=== PATIENT | female | born 1995 | race Caucasian/White ===

== ENCOUNTER 2021-09-13 06:35 | Inpatient (IN) | payer OTHER ==
[2021-09-13] MEDS: ELECTROLYTE-148 SOLN 1,000 ML IV SCH ×2 (08:15→09:30)
[2021-09-13 08:47] LABS: BASO % 0.3 % (0-2.0); HEMATOCRIT 33.7 % (32.4-45.2); LYMPH % 16.1 % (8-40); MCH 25.8 pg (25.7-33.7); MCHC 32.5 g/dl (32.0-36.0); MEAN CELL VOLUME 79.2 fl (80-96); NEUT % 74.6 % (42.8-82.8); PLATELET COUNT 230 10^3/uL (134-434); RBC 4.25 M/mm3 (3.60-5.2); RDW 16.6 % (11.6-15.6); WHITE BLOOD COUNT 7.7 K/mm3 (4.0-10.0)
[2021-09-13 09:05] LABS: ACTIVATED PTT 27.7 SECONDS (25.2-36.5); PROTHROMBIN TIME (PATIENT) 11.5 SEC (9.7-13.0)
[2021-09-13] MEDS ORDERED: FENTANYL/BUPIVACAINE/NS/PF - PCEA - 50 ML DISP.SYRIN EP ONE ×2 (09:07→09:22)
[2021-09-13 09:11] LABS: BLOOD UREA NITROGEN 5.2 mg/dL (7-18); CALCIUM 8.6 mg/dL (8.5-10.1)
[2021-09-13 09:15] LABS: CREATININE 0.4 mg/dL (0.55-1.3)
[2021-09-13] MEDS ORDERED: LIDOCAINE HCL/PF 2% SDV 5ML VIAL ONE (09:15)
[2021-09-13] MEDS ORDERED: LIDOCAINE HCL/EPINEPHRINE/PF 20 ML VIAL ONE (09:16)
[2021-09-13] MEDS ORDERED: BUPIVACAINE HCL/PF 0.25% (2.5MG/ML) 10 ML VIAL ONE (09:28)
[2021-09-13] MEDS ORDERED: NALOXONE HCL 0.4 MG/ML VIAL IVPUSH PRN (10:06)
[2021-09-13] MEDS ORDERED: FENTANYL/BUPIVACAINE/NS/PF - PCEA - 50 ML DISP.SYRIN EP SCH (10:15)
[2021-09-13] MEDS ORDERED: OXYTOCIN 20 UNITS in 0.9% NS 20 UNIT/1,000 ML INFUS.BAG IV ONE (10:28)
[2021-09-13] MEDS ORDERED: LIDOCAINE HCL 1% PRESERVATIVE FREE - 30ML VIAL ONE (10:59)
[2021-09-13] MEDS ORDERED: BENZOCAINE 20% 57 GM BOTTLE TP PRN (11:35)
[2021-09-13] MEDS ORDERED: METHYLERGONOVINE MALEATE 0.2 MG/1 ML AMP IM PRN (11:35)
[2021-09-13] MEDS ORDERED: BISACODYL 10 MG SUPP.RECT RC PRN (11:35)
[2021-09-13] MEDS ORDERED: oxyCODONE HCL 5 MG TABLET PO PRN (11:35)
[2021-09-13] MEDS ORDERED: BENZOCAINE 28 GM HEMORRHOIDAL OINTMENT TP PRN (11:35)
[2021-09-13] MEDS ORDERED: WITCH HAZEL 50% (TUCKS) 40 PAD/JAR PAD TP PRN (11:35)
[2021-09-13 11:42] LABS: CORD HCO3 23.5 mmHg (20-29); CORD PCO2 62.8 mmHg (30-78); CORD pH 7.191 (7.14-7.44)
[2021-09-13 11:44] LABS: CORD BASE EXCESS -4.3 mmol/L (0-2); CORD HCO3 22.5 mmHg (20-29); CORD PCO2 48.4 mmHg (30-78); CORD pH 7.286 (7.14-7.44)
[2021-09-13] MEDS ORDERED: OXYTOCIN 20 UNITS in 0.9% NS 20 UNIT/1,000 ML INFUS.BAG IV SCH (11:45)
[2021-09-13 12:52] VITALS: BMI 31.1
[2021-09-13] MEDS: ACETAMINOPHEN 325 MG TABLET (FP) PO PRN (15:59)
[2021-09-13] MEDS: IBUPROFEN 600 MG TABLET (FP) PO PRN ×2 (16:03→21:32)
[2021-09-14] MEDS: IBUPROFEN 600 MG TABLET (FP) PO PRN ×2 (06:38→21:29)
[2021-09-14 08:51] LABS: BASO % 0.5 % (0-2.0); EOS % 0.6 % (0-4.5); HEMATOCRIT 33.4 % (32.4-45.2); HEMOGLOBIN 10.5 GM/dL (10.7-15.3); LYMPH % 19.7 % (8-40); MCH 25.4 pg (25.7-33.7); MCHC 31.4 g/dl (32.0-36.0); MEAN PLT VOLUME 9.7 fl (7.5-11.1); MONO % 7.7 % (3.8-10.2); NEUT % 71.5 % (42.8-82.8); PLATELET COUNT 237 10^3/uL (134-434); RBC 4.12 M/mm3 (3.60-5.2); RDW 16.8 % (11.6-15.6); WHITE BLOOD COUNT 7.6 K/mm3 (4.0-10.0)
[2021-09-14] MEDS ORDERED: DIPHTH,PERTUSS(ACELL),TET 0.5 ML DISP.SYRIN IM ONE (10:00)
[2021-09-14] MEDS ORDERED: FLU VACC QS2021-22(6MOS UP)/PF 60 MCG/0.5 ML SYRINGE IM ONE (10:00)
[2021-09-14] MEDS: ACETAMINOPHEN 325 MG TABLET (FP) PO PRN (14:26)
[2021-09-14] MEDS ORDERED: SENNOSIDES/DOCUSATE COMBO (SENNA PLUS) TABLET (UD) PO PRN (22:00)
[2021-09-15 12:53] VITALS: BP 118/80; PULSE 82; TEMP 98.5
== END 2021-09-15 15:15 | disposition home or self-care (01) | DRG 560 ==
LOC: JDEL 06:35 → JLDR 07:50 → J3W 13:15
PROVIDERS: ADMIT Obstetrics & Gynecology; ATTEND Obstetrics & Gynecology
PROC: 10E0XZZ Delivery of Products of Conception, External Approach (ICD-10-PCS; principal; 2021-09-13)
PROC: 0W8NXZZ Division of Female Perineum, External Approach (ICD-10-PCS; 2021-09-13)
DX: O80 Encounter for full-term uncomplicated delivery (principal); Z3A.39 39 weeks gestation of pregnancy; Z37.0 Single live birth
CPT/HCPCS: 36415; 36600; 59025; 59409; 80048; 82803; 85025; 85610; 85730; 86780; 86850; 86900; 86901; 90686; 90715; C9803-CS; G0008; G0463-25; U0003; U0005